=== PATIENT | female | born 1960 | race Caucasian/White ===

== ENCOUNTER 2019-12-22 08:19 | Emergency (ER) | payer SELFPAY ==
[~2019-12-22] VITALS: Ht 165.1 cm; Wt 77.0 kg
[2019-12-22] MEDS ORDERED: LISI10TA5 PO (08:25)
[2019-12-22] MEDS ORDERED: ACETAMINOPHEN 325MG TABLET PO ONE (08:45)
[2019-12-22] MEDS ORDERED: KETOROLAC 15MG/ML VIAL IV ONE (08:45)
[2019-12-22 10:23] VITALS: BP 162/78
== END 2019-12-22 10:32 | disposition home or self-care (01) ==
LOC: ER 08:19
DX: S80.12XA Contusion of left lower leg, initial encounter (principal); I10 Essential (primary) hypertension; V03.10XA Pedestrian on foot injured in collision with car, pick-up truck or van in traffic accident, initial encounter; Y93.01 Activity, walking, marching and hiking; Y92.488 Other paved roadways as the place of occurrence of the external cause
CPT/HCPCS: 72100; 96374; 99283; J1885